=== PATIENT | female | born 1995 | race Hispanic/Latino ===

== ENCOUNTER 2021-04-05 17:27 | Inpatient (IN) | payer MEDICAID ==
[~2021-04-05] VITALS: Ht 152.4 cm; Wt 68.9 kg
[2021-04-05] MEDS ORDERED: PROMETHAZINE HCL 25 MG/ML 1ML AMPULE IM PRN (18:00)
[2021-04-05] MEDS ORDERED: LACTATED RINGERS 500 ML 500 ML IV PRN (18:00)
[2021-04-05] MEDS ORDERED: NALOXONE HCL 0.4 MG/1 ML ML IV PRN (18:00)
[2021-04-05] MEDS ORDERED: OXYTOCIN-LR 20 UNITS/1000 ML 1,000 ML IV SCH (18:00)
[2021-04-05] MEDS ORDERED: EPHEDRINE SULFATE 50 MG/ML AMPULE IVP PRN (18:00)
[2021-04-05] MEDS ORDERED: MISOPROSTOL 100 MCG TABLET VG SCH (18:00)
[2021-04-05] MEDS ORDERED: ROPIVACAINE 0.2% 100ML VIAL 100 ML EP SCH (18:00)
[2021-04-05 18:13] LABS: APPEARANCE,URINE Clear (CLEAR); BILIRUBIN,URINE Negative (NEGATIVE); COLOR,URINE Yellow (YELLOW); GLUCOSE, URINE (UA) Negative (NEGATIVE); KETONES,URINE Negative (NEGATIVE); LEUKOCYTE ESTERASE ,URINE Trace (NEGATIVE); NITRATE,URINE Negative (NEGATIVE); OCCULT BLOOD,URINE Negative (NEGATIVE); PH,URINE 6.5 (5.0-8.0); PROTEIN,URINE Negative (NEGATIVE); UROBILINOGEN,URINE 0.2 mg/dL (0.2-1.0)
[2021-04-05] MEDS ORDERED: MISOPROSTOL 25 MCG TABLET ONE ×2 (18:13→22:08)
[2021-04-05 18:22] LABS: BACTERIA,URINE Rare /HPF (None Seen); RBC,URINE 0-1 /HPF (0-1); SQUAMOUS EPITHELIAL CELL,UR Few /HPF (0-2)
[2021-04-05] MEDS: LACTATED RINGERS 1000ML 1,000 ML IV PRN ×2 (18:37→23:01)
[2021-04-05 18:38] LABS: HEMATOCRIT 33.8 % (36-48); MEAN CORPUSCULAR HEMOGLOBIN 30.8 pg (27.0-33.0); MEAN CORPUSCULAR HGB CONC 33.7 g/dL (32.0-36.0); MEAN CORPUSCULAR VOLUME 91.4 fL (79-99); RED BLOOD CELL COUNT(AUTO) 3.7 MIL/uL (4.00-5.50); RED CELL DISTRIBUTION WIDTH 13.1 % (11.0-15.5); WHITE BLOOD COUNT (AUTO) 10.1 K/uL (4.8-10.8)
[2021-04-05 18:57] VITALS: BP 119/80
[2021-04-05] MEDS: MEPERIDINE-PF 50 MG/ML SYG IVP PRN (23:48)
[2021-04-06] MEDS: MEPERIDINE-PF 50 MG/ML SYG IVP PRN (03:11)
[2021-04-06] MEDS: LACTATED RINGERS 1000ML 1,000 ML IV PRN (05:46)
[2021-04-06] MEDS ORDERED: OXYTOCIN-LR 20 UNITS/1000 ML 1,000 ML IV SCH ×2 (08:00→11:00)
[2021-04-06] MEDS ORDERED: METHYLERGONOVINE MALEATE 0.2 MG/1 ML ML ONE (09:07)
[2021-04-06] MEDS ORDERED: LIDOCAINE HCL 1% 20 ML VIAL ONE (09:21)
[2021-04-06] MEDS ORDERED: ACETAMINOPHEN WITH CODEINE 1 TAB TAB PO PRN (11:00)
[2021-04-06] MEDS ORDERED: ACETAMINOPHEN 325 MG TAB PO PRN (11:00)
[2021-04-06] MEDS ORDERED: WITCH HAZEL 1 PAD TP PRN (11:00)
[2021-04-06] MEDS ORDERED: BENZOCAINE/LANOLIN/ALOE VERA 60 ML AEROSOL TP PRN (11:00)
[2021-04-06] MEDS ORDERED: MEASLES/MUMPS/RUBELLA VACCINE, LIVE 0.5 ML/VIAL SQ PRN (11:00)
[2021-04-06] MEDS ORDERED: LANOLIN 30GM OINTMENT TP PRN (11:00)
[2021-04-06] MEDS ORDERED: DIPH,PERTUSS(ACELL),TET VAC/PF 0.5 ML VIAL IM PRN (11:00)
[2021-04-06 11:43] VITALS: BP 126/79
[2021-04-06 11:50] LABS: RAPID PLASMA REAGIN NONREACTIVE (NONREACTIVE)
[2021-04-06] MEDS ORDERED: PREN-154 PO (12:26)
[2021-04-06 16:46] VITALS: BP 131/74
[2021-04-06] MEDS: IBUPROFEN 600 MG TABLET PO PRN (19:08)
[2021-04-06 19:34] VITALS: BP 123/64
[2021-04-06] MEDS: DOCUSATE SODIUM 100 MG CAP PO SCH (20:56)
[2021-04-06 23:08] VITALS: BP 126/73
[2021-04-07 03:05] VITALS: BP 117/67
[2021-04-07] MEDS: IBUPROFEN 600 MG TABLET PO PRN (04:27)
[2021-04-07 06:06] LABS: HEMATOCRIT 29.4 % (36-48); MEAN CORPUSCULAR HEMOGLOBIN 30.5 pg (27.0-33.0); MEAN CORPUSCULAR VOLUME 92.5 fL (79-99); RED BLOOD CELL COUNT(AUTO) 3.18 MIL/uL (4.00-5.50); RED CELL DISTRIBUTION WIDTH 13.2 % (11.0-15.5); WHITE BLOOD COUNT (AUTO) 10.9 K/uL (4.8-10.8)
[2021-04-07 07:16] LABS: HEPATITIS Bs ANTIGEN SCREEN P Negative (Negative)
[2021-04-07 07:26] VITALS: BP 119/66
[2021-04-07] MEDS: DOCUSATE SODIUM 100 MG CAP PO SCH (09:05)
[2021-04-07 11:21] VITALS: BP 126/86
== END 2021-04-07 11:55 | disposition home or self-care (01) | DRG 560 ==
LOC: EDH 17:27 → OBSVTOIN 17:49 → LDH 17:49 → WSH 04-06 11:40
PROVIDERS: ADMIT Obstetrics & Gynecology; ATTEND Obstetrics & Gynecology
PROC: 10E0XZZ Delivery of Products of Conception, External Approach (ICD-10-PCS; principal; 2021-04-06)
PROC: 0W8NXZZ Division of Female Perineum, External Approach (ICD-10-PCS; 2021-04-06)
PROC: 3E033VJ Introduction of Other Hormone into Peripheral Vein, Percutaneous Approach (ICD-10-PCS; 2021-04-06)
PROC: 3E0P7GC Introduction of Other Therapeutic Substance into Female Reproductive, Via Natural or Artificial Opening (ICD-10-PCS; 2021-04-06)
PROC: 3E0R3BZ Introduction of Anesthetic Agent into Spinal Canal, Percutaneous Approach (ICD-10-PCS; 2021-04-06)
PROC: 00HU33Z Insertion of Infusion Device into Spinal Canal, Percutaneous Approach (ICD-10-PCS; 2021-04-06)
PROC: 3E0234Z Introduction of Serum, Toxoid and Vaccine into Muscle, Percutaneous Approach (ICD-10-PCS; 2021-04-06)
DX: O69.1XX0 Labor and delivery complicated by cord around neck, with compression, not applicable or unspecified (principal); Z23 Encounter for immunization; Z37.0 Single live birth; Z3A.40 40 weeks gestation of pregnancy; Z88.0 Allergy status to penicillin
CPT/HCPCS: 36415; 59025; 81001; 85027; 86592; 86701; 86850; 86900; 86901; 87340; 87390; 90715; 96360; A4314; A4351; G0378; J2175; J2210; J2550; J2590; J2795; J3490; J7120